=== PATIENT | male | born 1985 | race Hispanic/Latino ===

== ENCOUNTER 2017-12-19 08:32 | Outpatient (CLI) | payer MEDICARE, OTHER ==
[2017-12-19] MEDS ORDERED: Gadobenate Dimeglumine 529 MG/1 ML (20ML VIAL) ONE (09:00)
[2017-12-19] MEDS ORDERED: EPINEPHrine 1 MG/ML AMP ONE (09:00)
[2017-12-19] MEDS ORDERED: Lidocaine 1% PF 10 ML AMP ONE (09:00)
[2017-12-19] MEDS ORDERED: Iopamidol 300 61% 30 ML VIAL ONE (09:00)
--- NOTE | 2017-12-19 10:42 | RAD ---
RIGHT SHOULDER ARTHROGRAM: HISTORY: Right shoulder pain. COMPARISON: None. EXPOSURE: 240.4 mGy per m2 for 0.8 minutes. FINDINGS: Three views of the right shoulder do not identify any fractures or dislocation. The visualized right ribs are unremarkable. Successful right shoulder arthrogram. A total of 15 mL of the contrast admixture was administered. There were no immediate post procedure complications. TECHNIQUE: Consent was obtained for a shoulder arthrogram. The right shoulder was prepped and draped in a steri le fashion. Lidocaine 1% buffered with sodium bicarbonate was used for local anesthesia. Under fluo roscopy guidance, a 22 gauge spinal needle was advanced into the right shoulder joint space. A total of 15 mL of the contrast admixture was administered. The patient tolerated the procedure well. No immediate or post procedure complications. IMPRESSION: Successful right shoulder arthrogram. Please refer to post myelogram CT for further details. POS: N[facility]
--- NOTE | 2017-12-19 11:53 | MRI ---
MR ARTHROGRAM RIGHT SHOULDER WITH INTRAARTICULAR CONTRAST: Date: 12-19-17 Provided Clinical History: Right shoulder pain. FINDINGS: The components of the rotator cuff demonstrate an intact MR appearance. The long head biceps tendon a ppears intact and normally located. The glenoid labrum and glenohumeral articular cartilage appear no rmal. There is greater than physiologic fluid present within the subacromial subdeltoid bursa, which does not contain administered gadolinium contrast based material. Acromioclavicular joint osteoarthro sis and lateral downsloping of the acromion are noted. No focal concerning regional marrow or muscula r signal abnormality is apparent. IMPRESSION: 1. No evidence for rotator cuff of glenoid labral tear. 2. Subacromial subdeltoid bursitis. 3. Acromioclavicular joint osteoarthrosis. POS: C
== END 2017-12-19 08:33 | disposition home or self-care (01) ==
LOC: RAD 08:32
PROVIDERS: ATTEND Orthopaedic Surgery
DX: M25.511 Pain in right shoulder (principal); M19.011 Primary osteoarthritis, right shoulder; Z98.890 Other specified postprocedural states
CPT/HCPCS: 23350; A9579; J0171; J7050

== ENCOUNTER 2018-07-16 09:12 | Outpatient (CLI) | payer MEDICARE, OTHER ==
--- NOTE | 2018-07-16 12:23 | MRI ---
MRI OF LUMBAR SPINE: Date: 07-16-18 Comparison: None. History: Chronic low back pain with bilateral lower extremity radiculopathy. Technique: Multiplanar, multisequence MRI imaging of the lumbar spine is provided without contrast. FINDINGS: The sagittal STIR imaging demonstrates no focal areas of osseous marrow edema. On the basis of five l umbar type vertebral bodies, conus medullaris terminates at the T12-L1 level. T12-L1: Intervertebral disc height and signal intensity appears within normal limits with no central canal or neural foraminal stenosis. L1-2: Intervertebral disc height and signal intensity within normal limits with no significant centra l canal or neural foraminal stenosis. L2-3: Intervertebral disc height and signal intensity within normal limits with no central canal or n eural foraminal stenosis. L3-4: Intervertebral disc height and signal intensity within normal limits. No significant central ca nal or neural foraminal stenosis. L4-5: Intervertebral disc height and signal intensity within normal limits. No central canal stenosis . Mild facet hypertrophy bilaterally with mild bilateral neural foraminal stenosis. L5-S1: Bilateral facet hypertrophy, left greater than right. Disc space narrowing, disc desiccation, and disc bulge noted. There is a central/left paracentral annular tear. There is mild central canal s tenosis/left lateral recess stenosis. There is moderate left and mild right neural foraminal stenosis . The imaged retroperitoneal structures demonstrate no worrisome findings. IMPRESSION: Degenerative disc disease as detailed above, most prominent at the lumbosacral junction. POS: [facility]
== END 2018-07-16 09:13 | disposition home or self-care (01) ==
LOC: BICMRI 09:12
PROVIDERS: ATTEND Physician Assistant
DX: M51.16 Intervertebral disc disorders with radiculopathy, lumbar region (principal); M51.37 Other intervertebral disc degeneration, lumbosacral region
CPT/HCPCS: 72148

== ENCOUNTER 2019-04-23 10:18 | Outpatient (CLI) | payer MEDICARE, OTHER | END 2019-04-23 10:19 | disposition home or self-care (01) | LOC: DTY/OP 10:18 | PROVIDERS: ATTEND Surgery | DX: E66.01 Morbid (severe) obesity due to excess calories (principal) | CPT/HCPCS: 97802 ==

== ENCOUNTER 2019-06-09 06:50 | Outpatient (CLI) | payer MEDICARE, OTHER ==
[2019-06-09 12:32] LABS: #Eosinphils 0.1 thou/uL (0.0-0.7); #Monocytes 0.7 thou/uL (0.11-0.59); #Neutrophils 3.6 thou/uL (1.40-6.50); %Basophils 0.4 % (0.0-1.0); %Lymphocytes 30.7 % (21.0-51.0); %Monocytes 10.8 % (0.0-10.0); %Neutrophils 56.1 % (42.0-75.0); Hemoglobin 15.6 g/dL (14.0-18.0); Mean Corpuscular HGB CONC 33.8 g/dL (32.0-36.0); Mean Corpuscular Hemoglobin 29.9 pg (27.0-31.0); Mean Corpuscular Volume 88.4 fL (78.0-98.0); Mean Platelet Volume 8.6 fL (7.4-10.4); Platelet Count 218 thou/uL (130-400); RBC Distribution Width 11.6 % (11.5-14.5); Red Blood Cell (RBC) Count 5.22 mill/uL (4.70-6.10); White Blood Cell (WBC) Count 6.4 thou/uL (4.8-10.8)
[2019-06-09 12:57] LABS: ALT (SGPT) 32 U/L (8-55); AST (SGOT) 20 U/L (5-34); Albumin 4.6 g/dL (3.5-5.0); Alkaline Phosphatase 62 U/L (40-110); Anion Gap 11 mmol/L (10-20); BUN (Urea Nitrogen) 19 mg/dL (8.9-20.6); Bilirubin, Direct 0.5 mg/dL (0.1-0.3); Bilirubin, Total 1.5 mg/dL (0.2-1.2); Calc. Creatinine Clearance 0 mL/min (70-130); Calcium 9.5 mg/dL (7.8-10.44); Carbon Dioxide 26 mmol/L (22-29); Chloride 100 mmol/L (98-107); Estimated GFR-MDRD 85; Globulin 3.1 g/dL (2.4-3.5); Glucose 76 mg/dL (70-105); Potassium 4.3 mmol/L (3.5-5.1); Protein, Total 7.7 g/dL (6.0-8.3); Sodium 133 mmol/L (136-145)
--- NOTE | 2019-06-09 13:57 | RAD ---
CHEST 2 VIEWS: Date: 06/09/19 INDICATION: Preop evaluation. COMPARISON: None. FINDINGS: Lungs are clear. Heart size is normal. No acute osseous abnormality is evident. IMPRESSION: No acute cardiopulmonary abnormality. POS: OFF
--- NOTE | 2019-06-11 19:49 | EKG ---
Test Reason : Blood Pressure : / mmHG Vent. Rate : 065 BPM Atrial Rate : 065 BPM P-R Int : 150 ms QRS Dur : 086 ms QT Int : 398 ms P-R-T Axes : 076 037 018 degrees QTc Int : 413 ms Normal sinus rhythm Normal ECG No previous ECGs available Confirmed by COLIN RIOS, DR. Wilkinson ([id number]) on 06/11/2019 7:49:17 PM Referred By: WIL Confirmed By:DR. Minh SHAW MD
== END 2019-06-09 06:51 | disposition home or self-care (01) ==
LOC: LABBT 06:50
PROVIDERS: ATTEND Surgery
DX: G47.30 Sleep apnea, unspecified (principal); I10 Essential (primary) hypertension; Z68.41 Body mass index [BMI] 40.0-44.9, adult
CPT/HCPCS: 71046; 80053; 80076; 83036; 85025; 93005; 93010

== ENCOUNTER 2019-06-09 10:15 | Inpatient (IN) | payer MEDICARE, OTHER ==
[2019-06-19] MEDS ORDERED: Heparin 5,000 UNITS/ML VIAL ONE (06:34)
[2019-06-19] MEDS ORDERED: Bupivacaine/Epinephrine 0.25% 30 ML VIAL ONE ×2 (06:35→06:44)
[2019-06-19] MEDS ORDERED: Midazolam HCl 2 mg/2 ml Vial ONE (07:29)
[2019-06-19] MEDS ORDERED: Fentanyl 100 MCG/2 ML VIAL ONE ×3 (07:29→09:11)
[2019-06-19] MEDS ORDERED: Promethazine HCl 25 MG/ML VIAL SLOW IVP PRN (08:43)
[2019-06-19] MEDS ORDERED: Promethazine HCl 25 MG/ML VIAL IM PRN ×3 (08:43→08:47)
[2019-06-19] MEDS ORDERED: Ondansetron HCl/PF 4 MG/2 ML Vial IVP PRN (08:43)
[2019-06-19] MEDS ORDERED: Ondansetron PF 4 MG/2 ML Vial IVP PRN (08:45)
[2019-06-19] MEDS ORDERED: Dextrose 5% in Water 1,000 ML IV PRN (08:45)
[2019-06-19] MEDS ORDERED: diphenhydrAMINE 50 MG/ML VIAL IVP PRN ×2 (08:45→08:47)
[2019-06-19] MEDS ORDERED: hydrALAZINE 20 MG/ML VIAL SLOW IVP PRN (08:45)
[2019-06-19] MEDS ORDERED: Dextrose 50% Abboject 50 ML SYRINGE SLOW IVP PRN (08:45)
[2019-06-19] MEDS ORDERED: diphenhydrAMINE 25 MG CAP PO PRN (08:47)
[2019-06-19] MEDS ORDERED: diphenhydrAMINE 50 MG/ML VIAL IM PRN (08:47)
[2019-06-19] MEDS ORDERED: fentaNYL Citrate/PF 2,000 MCG in Sodium Chloride 0.9% 60 ML IV PRN (08:47)
[2019-06-19] MEDS ORDERED: Zolpidem Tartrate 5 MG TAB PO PRN (08:47)
[2019-06-19] MEDS ORDERED: Naloxone HCl 0.4 mg/ml Vial IV PRN (08:47)
[2019-06-19] MEDS ORDERED: Communication Order-Pharmacy FS SCH (09:00)
[2019-06-19] MEDS ORDERED: Ondansetron PF 4 MG/2 ML Vial ONE (09:03)
[2019-06-19] MEDS ORDERED: D5 1/2 NS w/20 mEq KCL 1,000 ML ONE (09:21)
[2019-06-19] MEDS ORDERED: Sodium Chloride 0.9% (PF) 10 ML VIAL FS PRN (10:11)
[2019-06-19] MEDS: D5 1/2 NS w/20 mEq KCL 1,000 ML IV SCH ×2 (10:15→15:50)
[2019-06-19 10:24] VITALS: BMI 41.4
[2019-06-19] MEDS: Lisinopril/Hydrochlorothiazide 10 mg/12.5 mg Tablet PO SCH (11:46)
[2019-06-19] MEDS: Acetaminophen 1,000 MG in Premix Bag 1 BAG IVPB SCH ×3 (12:22→23:46)
[2019-06-19] MEDS: Pantoprazole 40 MG VIAL IVP SCH (12:23)
--- NOTE | 2019-06-19 12:57 | OP ---
DATE OF PROCEDURE: 06/19/2019 PREOPERATIVE DIAGNOSES: 1. Morbid obesity with body mass index of 43. 2. Hypertension. 3. Sleep apnea. POSTOPERATIVE DIAGNOSES: 1. Morbid obesity with body mass index of 43. 2. Hypertension. 3. Sleep apnea. PROCEDURES PERFORMED: 1. Laparoscopic sleeve gastrectomy with Hensley staple line reinforcements and 38-Lao bougie. 2. Esophagogastroduodenoscopy. ANESTHESIA: General. ESTIMATED BLOOD LOSS: Minimal. COMPLICATIONS: None. FINDINGS: Normal postoperative EGD. DESCRIPTION OF PROCEDURE: The patient was taken to the operating room and laid supine on the operating room table. After general anesthetic was obtained, his arms and legs were double strapped to bariatric table. OG tube was used to decompress the stomach. The abdomen was prepped and draped in a sterile fashion. Left subcostal 5-mm Optiview trocar was placed in the usual fashion and high-flow pneumoperitoneum was obtained. Left and right abdominal 12-mm ports as well as right subcostal 5-mm port were placed under direct visualization. Short gastrics were taken down from a distance of 6 cm proximal to the pylorus all the way to the left yamilka of diaphragm. Left yamilka, angle of His, and posterior fundus completely dissected and released. A 38 bougie was brought in and its tip left in the antrum of the stomach. Multiple loads of the [place] stapling device with Hensley staple line reinforcements used to perform the sleeve. The first was fired at a distance of 6 cm proximal to the pylorus angled up towards the incisura. Multiple loads were fired up along the bougie. Stomach was completely transected at the angle of His. Stomach was removed from the left abdominal incision. This fascial defect was closed using GraNee needle and 0 Vicryl tie. A few bleeders on the staple line were clipped using laparoscopic clip. True retractors were removed under direct visualization without bleeding. EGD scope was passed through esophagus, stomach to the level of duodenum without obstruction or air leakage. There was no stricture at the incisura. No evidence of involvement of the GE junction with the staple line. EGD scope was used to decompress the stomach. It was pulled and removed. All port sites were infiltrated using local anesthetic. All ports were removed under camera visualization. Pneumoperitoneum was let down. The Vicryl was used to close the fascial defect from the left abdominal incisions. All incisions were irrigated and closed using 4-0 Monocryl and Dermabond. The patient was sent to Recovery in stable condition. All instrument counts, needle counts, and lap counts were correct. Job ID: [id number]
[2019-06-19] MEDS: Ondansetron PF 4 MG/2 ML Vial IVP PRN ×2 (15:47→21:52)
[2019-06-19] MEDS: Enoxaparin Sodium 40 MG/0.4 ML SYRINGE SC SCH (21:02)
[2019-06-20] MEDS: D5 1/2 NS w/20 mEq KCL 1,000 ML IV SCH ×4 (03:29→23:09)
[2019-06-20] MEDS: Acetaminophen 1,000 MG in Premix Bag 1 BAG IVPB SCH (05:55)
[2019-06-20 06:27] LABS: #Lymphocytes 1.3 thou/uL (1.20-3.40); #Monocytes 1.2 thou/uL (0.11-0.59); #Neutrophils 11.7 thou/uL (1.40-6.50); %Basophils 0.2 % (0.0-1.0); %Eosinophils 0.1 % (0.0-10.0); %Lymphocytes 9.2 % (21.0-51.0); %Monocytes 8.5 % (0.0-10.0); Hemoglobin 14.3 g/dL (14.0-18.0); Mean Corpuscular HGB CONC 34.3 g/dL (32.0-36.0); Mean Corpuscular Hemoglobin 30.8 pg (27.0-31.0); Mean Corpuscular Volume 89.8 fL (78.0-98.0); Mean Platelet Volume 9.1 fL (7.4-10.4); Platelet Count 197 thou/uL (130-400); RBC Distribution Width 11.3 % (11.5-14.5); Red Blood Cell (RBC) Count 4.64 mill/uL (4.70-6.10); White Blood Cell (WBC) Count 14.2 thou/uL (4.8-10.8)
[2019-06-20 06:43] LABS: Anion Gap 13 mmol/L (10-20); BUN (Urea Nitrogen) 8 mg/dL (8.9-20.6); Calc. Creatinine Clearance 196 mL/min (70-130); Calcium 8.9 mg/dL (7.8-10.44); Carbon Dioxide 22 mmol/L (22-29); Chloride 102 mmol/L (98-107); Estimated GFR-MDRD 85; Glucose 111 mg/dL (70-105); Sodium 133 mmol/L (136-145)
--- NOTE | 2019-06-20 07:16 | PDOC.GSPN ---
Surgery Progress Note: Subj - Subjective Patient reports: nausea, no bowel movement, no flatus Narrative: Mr. Pedro is a 33 year old male who is POD 1 from gastric sleeve surgery. He is doing okay this morning, but complains of difficulty sleeping and persistent nausea. Zofran seemed to help when he received it. He was able to drink sips of water, juice, and ice chips yesterday, however did not consume much due to nausea. Pain is 4/10 currently. He is ambulating well by walking in the hallways every few hours. Patient reports hiccups since surgery. Patient also reports history of thyroid cancer and thyroidectomy for which he usually takes Levothyroxine in the AM. He also mentions taking Lisinopril/HCTZ for his blood pressure. He denies vomiting, passing of bowel movement, passing of flatus, dizziness, fevers, and chills. Surgery Progress Note: Obj - Vital signs Vital signs: Vital Signs - Most Recent Temp Pulse Resp BP Pulse Ox 98.2 F 86 18 151/101 H 96 06/20/19 03:47 06/20/19 03:47 06/20/19 03:47 06/20/19 03:47 06/20/19 03:47 - Physical Exam General: no distress (Has intermittent hiccups that cause some discomfort.) ENT: normal mucosa Cardiovascular: regular rate and rhythm, no murmur Respiratory: clear to auscultation, normal expansion, normal respiratory effort , breath sounds present (No rales or wheezes.) Abdomen: nondistended, positive bowel sounds, appropriately tender Integumentary: no rash Musculoskeletal: other (No lower extremity edema. Pedal pulses 2+ bilaterally.) Psychiatric: oriented to time, oriented to person, oriented to place Wound: dressing clean,dry,intact, healing well (No signs of erythema or purulent drainage from incisions.) Surgery Progress Note: Results - Labs Result Diagrams: 06/20/19 05:51 06/20/19 05:51 Lab results: Laboratory Results - last 24 hr 06/20/19 06/20/19 05:51 05:51 WBC 14.2 H RBC 4.64 L Hgb 14.3 Hct 41.7 L MCV 89.8 MCH 30.8 MCHC 34.3 RDW 11.3 L Plt Count 197 MPV 9.1 Neutrophils % 82.0 H Lymphocytes % 9.2 L Monocytes % 8.5 Eosinophils % 0.1 Basophils % 0.2 Neutrophils # 11.7 H Lymphocytes # 1.3 Monocytes # 1.2 H Eosinophils # 0.0 Basophils # 0.0 Sodium 133 L Potassium 4.0 Chloride 102 Carbon Dioxide 22 Anion Gap 13 BUN 8 L Creatinine 1.00 Estimated GFR (MDRD) 85 Glucose 111 H Calcium 8.9 Surgery Progress Note: A/P - Plan Plan: Mr. Pedro is a 33 year old male who is POD 1 from gastric sleeve surgery. Gastric Sleeve Procedure -Continue clear liquids. Will consider thick liquids if he tolerates clears well. -Schedule Zofran to aid in controlling nausea to promote diet -Continue ambulation -Monitor pain level -Monitor for bowel movement and flatus History of Thyroid Disease -Will contact Dr. Hassan regarding medicines (Levothyroxine) HTN -Will contact Dr. Hassan regarding medicines (Lisinopril-HTCZ) Addendum - Physician - Physician Attestation Date/Time: 06/20/19 1004 I personally performed or re-performed the physical examination and medical decision making. I have verified all student documentation or findings, including history, physical exam and/or medical decision making. 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 Sent Rx over for lisinopril without the HCTZ
[2019-06-20] MEDS: Pantoprazole 40 MG VIAL IVP SCH (09:50)
[2019-06-20] MEDS: Ondansetron PF 4 MG/2 ML Vial IVP PRN (09:50)
[2019-06-20] MEDS: Lisinopril/Hydrochlorothiazide 10 mg/12.5 mg Tablet PO SCH (09:51)
[2019-06-20] MEDS: Hydrocodone-Acetamin 15 ML UDCUP PO PRN ×2 (11:33→20:52)
[2019-06-20] MEDS ORDERED: Acetaminophen 1,000 MG in Premix Bag 1 BAG IVPB PRN (14:43)
[2019-06-20] MEDS: Ketorolac Tromethamine 30 MG/ML VIAL IVP PRN ×2 (15:29→23:09)
[2019-06-20] MEDS: Enoxaparin Sodium 40 MG/0.4 ML SYRINGE SC SCH (20:52)
[2019-06-21] MEDS: D5 1/2 NS w/20 mEq KCL 1,000 ML IV SCH ×2 (06:53→08:43)
[2019-06-21 08:26] VITALS: BP 118/77; TEMP 98
[2019-06-21] MEDS: Pantoprazole 40 MG VIAL IVP SCH (08:43)
[2019-06-21] MEDS: Lisinopril/Hydrochlorothiazide 10 mg/12.5 mg Tablet PO SCH (08:43)
[2019-06-21] MEDS: Ketorolac Tromethamine 30 MG/ML VIAL IVP PRN (09:36)
--- NOTE | 2019-06-21 10:03 | DIS ---
DATE OF ADMISSION: 06/19/2019 DATE OF DISCHARGE: 06/21/2019 ADMIT DIAGNOSIS: Morbid obesity. DISCHARGE DIAGNOSIS: Morbid obesity. PROCEDURES: Laparoscopic sleeve gastrectomy by Dr. Hassan without complication. CONDITION ON DISCHARGE: Improved. STAFF: Dr. Hassan. HOSPITAL COURSE: The patient on postoperative day #1 had fairly significant pain in his epigastric area and nausea associated with BACKBREAKER. This was discontinued, he was placed on Toradol, and his pain improved. On postoperative day #2, he is tolerating liquid diet without difficulty. He is being discharged home. He will follow up with me in the office in 2 weeks. He is given prescription for Lortab elixir at home, however, codeine has caused nausea in the past and if he does in fact have nausea, he will just take his tramadol and he takes p.r.n. for back pain. Job ID: [id number]
== END 2019-06-21 10:40 | disposition home or self-care (01) | DRG 621 ==
LOC: SURG A 06-19 05:38
PROVIDERS: ADMIT Surgery; ATTEND Surgery
PROC: 0DB64Z3 Excision of Stomach, Percutaneous Endoscopic Approach, Vertical (ICD-10-PCS; principal; 2019-06-19)
PROC: 0DJ08ZZ Inspection of Upper Intestinal Tract, Via Natural or Artificial Opening Endoscopic (ICD-10-PCS; 2019-06-19)
DX: E66.01 Morbid (severe) obesity due to excess calories (principal); I10 Essential (primary) hypertension; G47.30 Sleep apnea, unspecified; R11.0 Nausea; T39.8X5A Adverse effect of other nonopioid analgesics and antipyretics, not elsewhere classified, initial encounter; Z68.41 Body mass index [BMI] 40.0-44.9, adult; Z90.49 Acquired absence of other specified parts of digestive tract
CPT/HCPCS: 36415; 80048; 85025; 88307; 88312; C9113; J0131; J0690; J1644; J1650; J1885; J2250; J2405; J3010; J3490